=== PATIENT | male | born 1970 | race African-American/Black ===

== ENCOUNTER 2019-07-31 20:09 | Inpatient (IN) ==
[2019-07-31] MEDS ORDERED: NS 1,000 ML ONE (20:24)
[2019-07-31] MEDS ORDERED: NS 1,000 ML IV ONE ×3 (20:27→23:11)
[2019-07-31 21:03] LABS: BASO# 0.02 X1000 (0.0-0.2); BASO% 0.4 % (0.0-0.8); EOS# 0.06 X1000 (0.0-0.7); EOS% 1.2 % (0.0-10.0); HEMATOCRIT 42.9 % (42.0-52.0); HEMOGLOBIN 13.4 g/dL (14.0-18.0); IMM GRAN# 0.01 X1000 (0.0-0.04); IMM GRAN% 0.2 % (0.0-0.5); LYMPH# 2.43 X1000 (1.2-3.4); LYMPH% 46.8 % (20.5-51.1); MCHC 31.2 g/dL (33-37); MONO# 0.51 X1000 (0.11-0.59); MONO% 9.8 % (1.7-9.3); MPV 9.3 FL (7.4-10.4); NEUT# 2.16 X1000 (1.4-6.5); NEUT% 41.6 % (42.2-75.2); PLT 416 X1000 (130-400); RBC 4.47 XMIL (4.7-6.1); RDW 13.6 % (11.5-14.5); WBC 5.19 X1000 (4.8-10.8)
[2019-07-31 21:13] LABS: ALBUMIN 4.5 g/dL (3.5-5.0); CALCIUM 9.3 mg/dL (8.8-10.2); CREATININE 2.2 mg/dL (0.7-1.2); POTASSIUM 4.2 mmol/L (3.5-5.1); TOTAL BILIRUBIN 0.9 mg/dL (0.20-1.00); TOTAL PROTEIN 7.5 g/dL (6.3-8.3)
--- NOTE | 2019-07-31 22:12 | Diag Imaging Result Doc PS360 ---
EXAM: CHEST-1 VIEW INDICATION: dizziness, hypotension TECHNIQUE: One view COMPARISON: 11/17/2013 FINDINGS: The lungs are grossly clear. There is no discrete pleural fluid collection or pneumothorax. The cardiomediastinal silhouette and central vasculature are grossly unremarkable. IMPRESSION: No evidence of acute pathology by plain radiograph. Electronically signed by Jigar Tran 07/31/2019 10:10 PM
[2019-07-31 22:24] LABS: URINE SOURCE CLEAN CATCH
[2019-07-31 22:33] LABS: BILIRUBIN URINE NEGATIVE (NEGATIVE); BLOOD URINE NEGATIVE (NEGATIVE); COLOR YELLOW; GLUCOSE URINE NEGATIVE (NEGATIVE); KETONE URINE TRACE mg/dL (NEGATIVE); LEUKOCYTES URINE NEGATIVE (NEGATIVE); NITRITE URINE NEGATIVE (NEGATIVE); PROTEIN URINE 50 mg/dL (NEGATIVE); SP GRAVITY URINE 1.021; TURBIDITY URINE CLEAR (CLEAR); UROBILINOGEN URINE 2 mg/dL (NORMAL)
[2019-07-31 22:34] LABS: UR EPITHELIAL CELLS <10 /HPF (<10); URINE BACTERIA NEGATIVE /HPF; URINE RBC <10 /HPF (<10); URINE WBC <10 /HPF (<10)
[2019-07-31 23:07] LABS: UR AMPHETAMINES QUAL NONE DETECTED (NONE DETECT); UR BARBITUATES QUAL NONE DETECTED (NONE DETECT); UR BENZODIAZEPIN QUAL NONE DETECTED (NONE DETECT); UR CANNABINOIDS QUAL PRESUMPTIVE POSITIVE (NONE DETECT); UR COCAINE QUAL PRESUMPTIVE POSITIVE (NONE DETECT); UR METHADONE QUAL NONE DETECTED (NONE DETECT); UR METHAMPHETAMINE QUAL NONE DETECTED (NONE DETECT); UR OPIATES QUAL NONE DETECTED (NONE DETECT); UR OXYCODONE QUAL NONE DETECTED (NONE DETECT); UR PCP QUAL NONE DETECTED (NONE DETECT); UR PROPOXYPHENE QUAL NONE DETECTED (NONE DETECT); UR TCA QUAL NONE DETECTED (NONE DETECT)
[2019-07-31] MEDS ORDERED: NS 2,000 ML IV ONE (23:12)
--- NOTE | 2019-07-31 23:29 | PROVIDER DOCUMENTATION ---
This chart was entered by Karma Mcadams Scribe, acting as scribe for Eva Griffith MD. HPI-Syncope/Dizziness - General Stated Complaint: B/P PROBLEMS Time Seen by Provider: 07/31/19 20:23 Source: patient Allergies/Adverse Reactions: Patient Allergies Allergy/AdvReac Type Severity Reaction Status Date / Time No Known Allergies Allergy Verified 11/17/13 03:37 - History of Present Illness-Syncope/Dizzy Nature of Presenting Problem: 48 y/o male presents to the ED with complaint of dizziness and found to have BP 81/45 on arrival. He states he was at rest sitting when he began to feel dizzy. He gives a history of similar episode and was told at that time symptoms were due to dehydration. He states he takes no daily meds and has never really seen a physician. He denies any sick symptoms. Onset/Duration: reports: just prior to arrival Position/Activity at time of episode: reports: sitting Context: reports: other (dizziness) Loss of Consciousness: no loss of consciousness Location of injury. (If syncope resulted in an injury.): reports: none Current Symptoms: reports: dizzy Similar symptoms previously: reports: workup for same problem Recently Seen Here or By Another Healthcare Provider: No - Dizziness Severity in ED: reports: moderate Dizziness Related Current/Associated Symptoms: reports: dizzy Any recent trauma/injury?: reports: none Patient usually:: reports: walks without assistance Review of Systems - Adult - REVIEW OF SYSTEMS - ADULT Constitutional: denies: chills, fever, weight gain Eyes: reports: no symptoms reported Ears, Nose, Mouth & Throat: denies: tinnitus, epistaxis, sinus problem Cardiovascular: reports: no symptoms reported Respiratory: reports: no symptoms reported Gastrointestinal: denies: diarrhea, nausea, vomiting Genitourinary: reports: no symptoms reported Musculoskeletal: reports: no symptoms reported Integumentary: reports: no symptoms reported Neurological: reports: dizziness/vertigo. denies: headache/migraines, syncope Psychiatric: reports: no symptoms reported Endocrine: reports: no symptoms reported Hematologic/Lymphatic: reports: no symptoms reported Allergic/Immunologic: reports: no symptoms reported All Other Systems: Reviewed and Negative Past History - Adult - PAST MEDICAL HISTORY-ADULT Review of Records: reports: Old Records Reviewed, Nursing Assessment Review, Medications Reviewed Major Childhood Illnesses: reports: denies history Cardiovascular: reports: cardiac disease Respiratory: reports: denies history Gastrointestinal: reports: denies history Obstetrical/Gynecological: reports: denies history Genitourinary: reports: denies history Musculoskeletal: reports: denies history Neurological: reports: denies history Psychiatric: reports: denies history Endocrine/Immune: reports: denies history Other Conditions: reports: denies history - PRIOR SURGERIES/PROCEDURES Surgical/Procedure History: reports: reviewed, not pertinent - IMMUNIZATION STATUS Childhood Immunizations: See Nurse Assessment Flu Vaccine: See Nurse Assessment - FAMILY HISTORY Family History: reviewed, not pertinent - SOCIAL HISTORY Smoking: cigarettes, less than 1 pack/day Provider spent 3-5 mins advising pt. on dangers of tobacco.: Discussed manners to quit use, and f/u contacts for add'l counseling. Physical Exam-General - PHYSICAL EXAM-ADULT Initial Vital Signs Reviewed: Yes - CONSTITUTIONAL General Appearance: alert, other (appears weak) - HEAD, EARS, NOSE, MOUTH & THROAT HENMT: normocephalic/atraumatic - NECK Neck: full range of motion, supple - RESPIRATORY Respiratory: lungs clear, normal breath sounds, no respiratory distress, no accessory muscle use. negative: rales, rhonchi, wheezing - CARDIOVASCULAR Cardiovascular: normal peripheral pulses, no murmur, bradycardia - GASTROINTESTINAL (ABDOMEN) Abdominal Exam: normal bowel sounds, non tender, soft - MUSCULOSKELETAL Back Exam: normal inspection Extremity: normal inspection - SKIN Integumentary: normal color, warm/dry. negative: diaphoresis - NEUROLOGIC Neurologic: grossly normal - PSYCHIATRIC Psych/Mental Status: normal mood/affect, normal thought content, normal thought process, oriented x 3 Progress - PLAN OF CARE/RESULTS Progress/Plan/Lab Results: Vital Signs - 8 hr 07/31/19 20:42 07/31/19 20:54 07/31/19 21:19 Temperature 97.4 F L Pulse Rate 69 61 82 Respiratory Rate 18 18 18 Blood Pressure 81/45 98/66 106/71 O2 Sat by Pulse Oximetry 93 L 93 L 96 07/31/19 22:23 Temperature Pulse Rate 62 Respiratory Rate 20 Blood Pressure 117/80 O2 Sat by Pulse Oximetry 97 Laboratory Results - last 24 hr 07/31/19 07/31/19 07/31/19 20:28 20:40 20:40 WBC RBC Hgb Hct MCV MCH MCHC RDW Std Deviation Plt Count MPV Immature Gran % (Auto) Neut % (Auto) Lymph % (Auto) [place] % (Auto) Eos % (Auto) Baso % (Auto) Immature Gran # (Auto) Neut # (Auto) Lymph # (Auto) [place] # (Auto) Eos # (Auto) Baso # (Auto) Sodium 145 Potassium 4.2 Chloride 107 Carbon Dioxide 26 Anion Gap 12 BUN 16 Creatinine 2.2 H Estimated GFR/1.73 m2 32 BUN/Creatinine Ratio 7 Glucose 77 POC Glucose 73 Calculated Osmolality 289 Calcium 9.3 Total Bilirubin 0.90 AST 13 ALT 15 Alkaline Phosphatase 53 Creatine Kinase Troponin T High Sens 14 Total Protein 7.5 Albumin 4.5 Globulin 3.0 Albumin/Globulin Ratio 2.0 Urine Source Urine Color Urine Turbidity Urine pH Ur Specific [place] Urine Protein Ur Glucose (Stick) Ur Ketones (Stick) Urine Blood Urine Nitrite Urine Bilirubin Urobilinogen Dipstick Urine Leukocytes Urine WBC (Auto) Urine RBC (Auto) U Epithel Cells (Auto) Urine Bacteria (Auto) Urine Opiates Screen Ur Oxycodone Screen Urine Methadone Screen U Propoxyphene Qual Ur Barbituates Screen Ur Tricyclics Screen Ur Phencyclidine Scrn Ur Amphetamines Screen U Methamphetamines Scrn U Benzodiazepines Scrn Urine Cocaine Screen U Cannabinoids Screen 07/31/19 07/31/19 07/31/19 20:40 20:40 22:15 WBC 5.19 RBC 4.47 L Hgb 13.4 L Hct 42.9 MCV 96.0 MCH 30.0 MCHC 31.2 L RDW Std Deviation 13.6 Plt Count 416 H MPV 9.3 Immature Gran % (Auto) 0.2 Neut % (Auto) 41.6 L Lymph % (Auto) 46.8 [place] % (Auto) 9.8 H Eos % (Auto) 1.2 Baso % (Auto) 0.4 Immature Gran # (Auto) 0.01 Neut # (Auto) 2.16 Lymph # (Auto) 2.43 [place] # (Auto) 0.51 Eos # (Auto) 0.06 Baso # (Auto) 0.02 Sodium Potassium Chloride Carbon Dioxide Anion Gap BUN Creatinine Estimated GFR/1.73 m2 BUN/Creatinine Ratio Glucose POC Glucose Calculated Osmolality Calcium Total Bilirubin AST ALT Alkaline Phosphatase Creatine Kinase 331 H Troponin T High Sens Total Protein Albumin Globulin Albumin/Globulin Ratio Urine Source CLEAN CATCH Urine Color YELLOW Urine Turbidity CLEAR Urine pH 6.0 Ur Specific [place] 1.021 Urine Protein 50 A Ur Glucose (Stick) NEGATIVE Ur Ketones (Stick) TRACE A Urine Blood NEGATIVE Urine Nitrite NEGATIVE Urine Bilirubin NEGATIVE Urobilinogen Dipstick 2 A Urine Leukocytes NEGATIVE Urine WBC (Auto) <10 Urine RBC (Auto) <10 U Epithel Cells (Auto) <10 Urine Bacteria (Auto) NEGATIVE Urine Opiates Screen Ur Oxycodone Screen Urine Methadone Screen U Propoxyphene Qual Ur Barbituates Screen Ur Tricyclics Screen Ur Phencyclidine Scrn Ur Amphetamines Screen U Methamphetamines Scrn U Benzodiazepines Scrn Urine Cocaine Screen U Cannabinoids Screen 07/31/19 22:15 WBC RBC Hgb Hct MCV MCH MCHC RDW Std Deviation Plt Count MPV Immature Gran % (Auto) Neut % (Auto) Lymph % (Auto) [place] % (Auto) Eos % (Auto) Baso % (Auto) Immature Gran # (Auto) Neut # (Auto) Lymph # (Auto) [place] # (Auto) Eos # (Auto) Baso # (Auto) Sodium Potassium Chloride Carbon Dioxide Anion Gap BUN Creatinine Estimated GFR/1.73 m2 BUN/Creatinine Ratio Glucose POC Glucose Calculated Osmolality Calcium Total Bilirubin AST ALT Alkaline Phosphatase Creatine Kinase Troponin T High Sens Total Protein Albumin Globulin Albumin/Globulin Ratio Urine Source Urine Color Urine Turbidity Urine pH Ur Specific [place] Urine Protein Ur Glucose (Stick) Ur Ketones (Stick) Urine Blood Urine Nitrite Urine Bilirubin Urobilinogen Dipstick Urine Leukocytes Urine WBC (Auto) Urine RBC (Auto) U Epithel Cells (Auto) Urine Bacteria (Auto) Urine Opiates Screen NONE DETECTED Ur Oxycodone Screen NONE DETECTED Urine Methadone Screen NONE DETECTED U Propoxyphene Qual NONE DETECTED Ur Barbituates Screen NONE DETECTED Ur Tricyclics Screen NONE DETECTED Ur Phencyclidine Scrn NONE DETECTED Ur Amphetamines Screen NONE DETECTED U Methamphetamines Scrn NONE DETECTED U Benzodiazepines Scrn NONE DETECTED Urine Cocaine Screen PRESUMPTIVE POSITIVE A U Cannabinoids Screen PRESUMPTIVE POSITIVE A Orders Category Date Time Status FSBS/Accucheck Result NOW Care 07/31/19 20:26 Active NEWS Score >or=5:Order NEWS Bundle S.O. NOW Care 07/31/19 20:46 Active Resuscitation Status Routine Care 07/31/19 23:22 Ordered CHEST-1 VIEW [RAD] Stat Exams 07/31/19 20:[address] HEAD W/O CONTRAST [CT] Stat Exams 07/31/19 23:21 Taken BASIC METABOLIC PANEL [CHEM] Stat Lab 08/01/19 06:00 Ordered CBC WITH ELECTRONIC DIFF [HEME] Stat Lab 07/31/19 20:40 Completed CBC WITH ELECTRONIC DIFF [HEME] Stat Lab 08/01/19 06:00 Ordered CK TOTAL [CHEM] Stat Lab 07/31/19 20:40 Completed CK TOTAL [CHEM] Stat Lab 08/01/19 06:00 Ordered COMPREHENSIVE METABOLIC PANEL [CHEM] Stat Lab 07/31/19 20:40 Completed TROPONIN T HIGH SENSITIVITY Stat Lab 07/31/19 20:40 Completed URINALYSIS W/POSS RFLX CULT [URINALYSIS] Stat Lab 07/31/19 22:15 Com[address]INE DRUG SCREEN [address] Stat Lab 07/31/19 22:15 Completed 0.9% Sodium Chloride Inj [Ns] 1,000 ml Med 07/31/19 20:24 Discontinued .ROUTE As directed 0.9% Sodium Chloride Inj [Ns] 1,000 ml Med 07/31/19 20:27 Discontinued IV 999 mls/hr 0.9% Sodium Chloride Inj [Ns] 1,000 ml Med 07/31/19 22:45 Discontinued IV 999 mls/hr 0.9% Sodium Chloride Inj [Ns] 1,000 ml Med 07/31/19 23:11 Discontinued IV 999 mls/hr 0.9% Sodium Chloride Inj [Ns] 2,000 ml Med 07/31/19 23:12 Active IV 150 mls/hr Carotid Ultrasound Stat Ther 08/01/19 07:00 Ordered EKG [EKG] Stat Ther 07/31/19 20:26 Draft Echo Spec/Color Doppler Stat Ther 08/01/19 07:00 Ordered Transfer/Admit Order [TRANSFER] Routine Transfer 07/31/19 23:22 Ordered patient with initial hypotension to 80/40s. Improved with IVF but only while lying down. UDS + for multiple substances including cocaine, however, HR and BP not consistent with cocaine use. Spoke to Dr Morin, internet marketing consultant for hospitalist who accepted patient for admission. Wanted morning labs, ECHO and dopplers orders for the AM and continue IVF. Orders placed per his recommendations. Patient stable for the floor. Result Diagrams: 07/31/19 20:40 07/31/19 20:40 - EKG 1 Time of EKG reading by physician:: 22:30 EKG Read and Signed by:: Eva Griffith EKG Interpretation (*Must complete 3 of following elements*): Normal Rate: 62 Rhythm: NSR [place]: normal QRS: LVH MA Interval: normal ST Wave: normal Prior EKG Comparison: no prior EKG - XRAY 1 XRAY Study: Chest Impression: Normal (EXAM: CHEST-1 VIEW INDICATION: dizziness, hypotension TECHNIQUE: One view COMPARISON: 11/17/2013 FINDINGS: The lungs are grossly clear. There is no discrete pleural fluid collection or pneumothorax. The cardiomediastinal silhouette and central vasculature are grossly unremarkable. IMPRESSION: No evidence of acute pathology by plain radiograph. Electronically signed by Jigar Tran 07/31/2019 10:10 PM) - CT/MRI 1 CT Study: Head Impression: Abnormal (No acute intracranial process. Indeterminate sellar/parasellar mass which futher characterization with pre and postcontrast MRI is suggested.), See EMR Report - CONSULTS/PCP/HOSPITALIST Notification #1 *Consult/PCP/Hospitalist*: Dr. Mikel Nash Time Discussed: 23:17 Reason/Comments: dizziness/syncope Consult Disposition: Admit Departure - Departure Date of Disposition Decision: 07/31/19 Time of Disposition Decision: 23:14 DIAGNOSIS: Near syncope, Hypotension, Polysubstance abuse, GIACOMO (acute kidney injury) Disposition: ADMITTED INPATIENT 09 Certified Medical Emergency: Emergent Condition: Stable - Critical Care Note This patient required my direct & personal management of CC.: Yes Total Time (mins): 35 Critical Care Statement: This patient required my direct personal management to treat or rule out processes, the absence of which, could potentiallly result in sudden, clinically significant life or limb threatening deterioration. Attestation - Physician/ [place] Attestation Patient care was provided by Advanced Practice Provider:: No The physician spent face to face time with patient:: Yes Advanced Practice Provider documentation review:: Supervising physician onsite and consulted in the evaluation and care of this patient. The physician did have a face to face encounter with the patient. This chart was documented by the indicated scribe, (Karma Mcadams, Marquis) and accurately reflects the services I performed and decisions made by me, Eva Griffith MD, as attested by the provider's signature.
--- NOTE | 2019-08-01 00:02 | EKG Report ---
Test Performed on : 07/31/2019 10:28:08 PM Test Reason : hypotension, dizziness Blood Pressure : / mmHG Vent. Rate : 062 BPM Atrial Rate : 062 BPM P-R Int : 144 ms QRS Dur : 102 ms QT Int : 452 ms P-R-T Axes : 056 041 060 degrees QTc Int : 458 ms Normal sinus rhythm. with sinus arrhythmia. Normal ECG No previous ECGs available Unconfirmed Result
[2019-08-01 02:21] LABS: INR 0.97; PROTIME 13.4 Seconds (11.0-16.0); PTT 33.6 Seconds (22.3-41.8)
[2019-08-01 05:23] LABS: BASO# 0.02 X1000 (0.0-0.2); BASO% 0.3 % (0.0-0.8); EOS# 0.08 X1000 (0.0-0.7); EOS% 1.2 % (0.0-10.0); HEMATOCRIT 39.7 % (42.0-52.0); HEMOGLOBIN 12.3 g/dL (14.0-18.0); IMM GRAN# 0.01 X1000 (0.0-0.04); IMM GRAN% 0.1 % (0.0-0.5); LYMPH# 2.53 X1000 (1.2-3.4); LYMPH% 36.9 % (20.5-51.1); MCH 30.1 PG (27-31); MCV 97.1 FL (81-99); MONO% 7.3 % (1.7-9.3); MPV 9.3 FL (7.4-10.4); NEUT# 3.72 X1000 (1.4-6.5); NEUT% 54.2 % (42.2-75.2); PLT 354 X1000 (130-400); RBC 4.09 XMIL (4.7-6.1); RDW 13.8 % (11.5-14.5); WBC 6.86 X1000 (4.8-10.8)
[2019-08-01 05:35] LABS: CALCIUM 7.7 mg/dL (8.8-10.2); CREATININE 1.3 mg/dL (0.7-1.2); POTASSIUM 3.8 mmol/L (3.5-5.1)
--- NOTE | 2019-08-01 09:05 | Diag Imaging Result Doc PS360 ---
EXAM: CT HEAD W/O CONTRAST INDICATION: near syncope, hypotension TECHNIQUE: This exam was performed using automated exposure control, adjustment of mA or kV according to patient size, and/or use of iterative reconstruction technique. COMPARISON: None. FINDINGS: There is no definite acute infarct given the limited sensitivity of CT versus MRI. 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 It measures approximately 2.3 x 1.6 cm axially. There is suggestion of mild right parasellar bony remodeling. Although nonspecific, the mass is probably extra-axial. A parasellar meningioma, a pituitary macroadenoma, or even a parasellar aneurysm are differential considerations. Correlation with an MRI with and without contrast is recommended if not contraindicated. No other discrete mass is identified. There is no evidence of intracranial hemorrhage. There is no hydrocephalus. Surrounding soft tissues are unremarkable. The calvaria is intact. IMPRESSION: 1.Right parasellar mass as described. Correlation with MRI with and without contrast is recommended for better characterization. Please see above discussion. 2.No evidence of acute intracranial pathology, otherwise. Electronically signed by Jigar Tran 08/01/2019 9:02 AM
--- NOTE | 2019-08-01 14:31 | Vascular Study Report ---
EXAM: Carotid Ultrasound INDICATION: near syncope, hypotension TECHNIQUE: COMPARISON: None. FINDINGS: Right: There is no significant atherosclerotic disease involving the right carotid system on grayscale images. The peak systolic velocity measures 119, 102, 51, 34, 53, 63, and 98 cm/s at the right subclavian artery, CCA, bifurcation, proximal ICA, mid ICA, distal ICA, and ECA, respectively. There is antegrade flow in the vertebral artery. The carotid ratio is 0.6. Left: There is no significant atherosclerotic disease involving the left carotid system on grayscale images. The peak systolic velocity measures 140, 102, 53, 39, 51, 65, and 100 cm/s at the left subclavian artery, CCA, bifurcation, proximal ICA, mid ICA, distal ICA, and ECA, respectively. There is antegrade flow in the vertebral artery. The carotid ratio is 0.6. IMPRESSION: No evidence of hemodynamically significant carotid stenosis by Doppler. Electronically signed by Jigar Tran 08/01/2019 2:29 PM
[2019-08-02] MEDS ORDERED: VANCOMYCIN IV PER PHARMACY MISC SCH (06:00)
[2019-08-02] MEDS: VANCOMYCIN 1 GM/NS 1 GM/250 ML IVPB IV SCH ×3 (07:02→20:19)
[2019-08-02 09:59] LABS: BASO# 0.02 X1000 (0.0-0.2); BASO% 0.4 % (0.0-0.8); EOS# 0.08 X1000 (0.0-0.7); EOS% 1.7 % (0.0-10.0); HEMOGLOBIN 13.1 g/dL (14.0-18.0); IMM GRAN# 0.01 X1000 (0.0-0.04); IMM GRAN% 0.2 % (0.0-0.5); LYMPH# 1.85 X1000 (1.2-3.4); MCH 29.8 PG (27-31); MCHC 31.2 g/dL (33-37); MCV 95.5 FL (81-99); MONO# 0.33 X1000 (0.11-0.59); MONO% 7.1 % (1.7-9.3); MPV 9.3 FL (7.4-10.4); NEUT# 2.34 X1000 (1.4-6.5); NEUT% 50.6 % (42.2-75.2); PLT 358 X1000 (130-400); RDW 13.4 % (11.5-14.5); WBC 4.63 X1000 (4.8-10.8)
[2019-08-02 10:15] LABS: AGAP 13; BUN 10 mg/dL (8-22); CALCIUM 8.2 mg/dL (8.8-10.2); CHLORIDE 106 mmol/L (98-107); COSMO 284; CREATININE 1.2 mg/dL (0.7-1.2); ESTIMATED GFR > 60; GLUCOSE 130 mg/dL (70-104); POTASSIUM 3.5 mmol/L (3.5-5.1); SODIUM 142 mmol/L (136-145); TCO2 23 mmol/L (25-35)
--- NOTE | 2019-08-02 10:32 | PROGRESS NOTE ---
DATE: 08/02/2019 SUBJECTIVE: The patient reports feeling fine. No more episodes of dizziness. Blood pressure is much better. He is going to the bathroom, walking without any sensation of lightheadedness. OBJECTIVE: Vital Signs: Temperature 97.6 degrees, heart rate 64, respiratory rate 18, blood pressure 164/108, O2 saturation 100% on room air. General Examination: This is a 48-year-old, -[place] male, lying in bed, in no acute distress. Cardiovascular Examination: S1 and S2 heard. No murmurs, gallops, or rubs. Regular rate and rhythm. Respiratory Examination: Clear bilaterally to auscultation. No work of breathing or using accessory muscles. Abdomen: Soft. Nontender to palpation. Bowel sounds present. No organomegaly. Extremities: No clubbing, cyanosis, or edema. Peripheral pulses present in both legs. Neurological Examination: The patient alert and oriented x3. Moves 4 extremities. Laboratory Data: Pending at the time of my dictation. ASSESSMENT: 1. Hypotension on presentation. 2. Polysubstance abuse with cocaine and marijuana. 3. Acute kidney injury. PLAN: The patient was admitted to the hospital because of the conditions mentioned above. It was very surprising that this patient, having consumed cocaine, the blood pressure is low and he was a little bit relatively bradycardic. Now that condition has resolved with IV fluids. Renal function continues to improve. We do not have the results of the of the BMP from today. From admission to yesterday, there has been good improvement of the renal function. So far, the workup for syncope including carotid ultrasound is okay. The head CT on admission showed a right parasellar mass. We will definitely check an MRI of the brain with and without contrast to have a better visualization with the brain anatomy. Also, we were called that the blood cultures are negative. Considering history polysubstance abuse, I have asked this patient if he was using IV drugs but he denies. In any case, we will wait for the final results of blood cultures for tomorrow and we will go from there. cc: Ty Mccoy MD
--- NOTE | 2019-08-02 11:43 | ECHO REPORT ---
ORDER DATE: 08/01/2019 INTERPRETING PHYSICIAN: Dr. Blake Zimmerman. ECHOCARDIOGRAPHIC MEASUREMENTS: 1. Interventricular septum 1.4 cm. 2. Left ventricular posterior wall 1.3 cm. 3. Left ventricular diastolic diameter 5.3 cm. 4. Left atrium 4.2 cm. 5. Aorta 3.4 cm. SUMMARY OF THE 2-DIMENSIONAL IMAGIN. Mitral valve was normal. 2. Aortic valve leaflets were trileaflet. 3. Tricuspid valve was normal. 4. Pulmonic valve was normal. 5. There is mild pulmonary regurgitation. 6. There is mild tricuspid regurgitation. Peak velocity across the tricuspid valve was 2.5 m/sec. 7. Pulmonary artery systolic pressure of 35 mmHg. 8. Normal left ventricular cavity size. Concentric left ventricular hypertrophy. Estimated ejection fraction of 60%. 9. There is mild mitral regurgitation. 10. Peak velocity across the aortic valve is less than 2 m/sec by Doppler studies. There is no aortic stenosis. There is trivial aortic regurgitation. 11. There is no pericardial effusion or obvious intracardiac mass or thrombus seen. cc: Blake Zimmerman MD
[2019-08-03 06:06] LABS: CALCIUM 8.5 mg/dL (8.8-10.2); CREATININE 1.3 mg/dL (0.7-1.2); POTASSIUM 3.5 mmol/L (3.5-5.1)
[2019-08-03 06:20] LABS: BASO# 0.02 X1000 (0.0-0.2); BASO% 0.4 % (0.0-0.8); EOS# 0.14 X1000 (0.0-0.7); EOS% 2.6 % (0.0-10.0); HEMATOCRIT 43.5 % (42.0-52.0); HEMOGLOBIN 13.8 g/dL (14.0-18.0); IMM GRAN# 0.02 X1000 (0.0-0.04); IMM GRAN% 0.4 % (0.0-0.5); LYMPH# 2.29 X1000 (1.2-3.4); LYMPH% 42.6 % (20.5-51.1); MCHC 31.7 g/dL (33-37); MCV 94.6 FL (81-99); MONO# 0.46 X1000 (0.11-0.59); MONO% 8.6 % (1.7-9.3); MPV 9.4 FL (7.4-10.4); NEUT# 2.44 X1000 (1.4-6.5); NEUT% 45.4 % (42.2-75.2); PLT 368 X1000 (130-400); WBC 5.37 X1000 (4.8-10.8)
[2019-08-03 07:56] VITALS: BP 153/92
[2019-08-03] MEDS: VANCOMYCIN 1 GM/NS 1 GM/250 ML IVPB IV SCH (08:16)
--- NOTE | 2019-08-03 14:11 | DISCHARGE SUMMARY ---
ADMISSION DATE: 07/31/2019 DISCHARGE DATE: 08/03/2019 DISCHARGE DIAGNOSES: 1. Syncope, resolved. 2. Hypotension, resolved. 3. Polysubstance abuse. 4. Acute kidney injury, resolved. 5. Prostatism. Aware. CONSULTATIONS: None. PROCEDURES: 1. Chest x-ray done on admission showed no evidence of acute pathology by plain radiograph. 2. Head CT done on admission showed right parasellar mass as described. No evidence of acute intracranial pathology. 3. Echocardiogram Doppler showed ejection fraction of 60% with no pericardial effusion. No obvious intracardiac mass or thrombus seen. No aortic stenosis. HOSPITAL COURSE: In brief, this is a 48-year-old male, who presented to the emergency department complaining of dizziness and he was found to have a blood pressure 81/45. He was resting when he started feeling dizzy. So he told us he had become dehydrated. Upon evaluation, was found out to have cocaine and cannabinoids positive in the UDS. The patient was admitted for syncope workup. The results of the exam mentioned above: The patient was feeling better. Blood pressure was okay. We stopped IV fluids and blood pressure maintains above 130s- 140s. The patient also reports some signs of prostatism. He reports that he was having nocturia also some more urinary frequency. We checked results of CT scan of the head with that suprasellar mass. We ordered an MRI of the brain before discharge, but patient refused to have that exam because he was feeling very anxious and, even though we offered medications for anxiety, he finally refused to have that procedure. The patient is going to be discharged in stable condition. He has been advised and informed about that finding in the CT scan of the head. DISCHARGE PHYSICAL EXAMINATION: Vital Signs: Temperature 97.4 degrees, heart rate 97, respiratory 16, blood pressure 153/92, O2 saturation 99% on room air. General examination: This is a 48-year-old, male, lying in bed in no acute distress. Cardiovascular exam: S1, S2 heard. No murmurs, gallops, or rubs. Regular rate and rhythm. Respiratory exam: Clear bilaterally to auscultation. No work of breathing or using accessory muscles. Abdomen: Soft, nontender to palpation. Bowel sounds present. No organomegaly. Extremities: No clubbing, cyanosis, or edema. Peripheral pulses present in both legs. Neurological exam: The patient is alert, oriented x3. Moves 4 extremities. DISCHARGE DISPOSITION: Home to self-care. LIST OF MEDICATIONS: At this point, we are not providing any medications to him, except Flomax 0.4 mg one tablet p.o. at bedtime. cc: Ty Mccoy MD
--- NOTE | 2019-08-15 13:09 | HISTORY AND PHYSICAL ---
CHIEF COMPLAINT: Hypertension. HISTORY OF PRESENT ILLNESS: The patient is a 48-year-old male that presented to [facility] secondary to dizziness. He was noted to have hypotension with blood pressure 81/45, stating that he felt dizzy and lightheaded, felt like he was going to pass out. The patient had several episodes until he was hydrated. Denies taking any current medications and denies any that he takes on a regular basis. Denies any chest pains. Denies fevers, chills. ALLERGIES: No known drug allergies. MEDICATIONS: No current prescription medications. REVIEW OF SYSTEMS: As noted above. Positive lightheaded, dizzy. Denies any shortness of breath. Denies palpitations. Klaus any syncope, although he feels like he is going to pass out. Denies dysuria, frequency, constipation, melena or hematochezia at the present time. PAST MEDICAL HISTORY: Does have a history of coronary disease, but has not been following up with any physician over the last several years. Denies any other medical issues. FAMILY HISTORY: Noncontributory. SOCIAL HISTORY: Continues to smokes although less than a pack a day. Denies any substance abuse. PHYSICAL EXAMINATION: VITAL SIGNS: Reviewed. He is afebrile, pulse 97, respiratory 16, BP 81/45 and 106/71. GENERAL: Patient is awake, pleasant. He is in no respiratory distress. He is lying flatly in the bed. HEENT: Normocephalic. NECK: Supple. CARDIOVASCULAR: Regular rate. CHEST: Clear, nonlabored, no wheezing. ABDOMEN: Soft, nondistended, nontender. EXTREMITIES: Moves all extremities. NEUROLOGIC: No focal changes. ASSESSMENT: 1. Hypotension of uncertain origin. 2. Urine drug screen positive for cocaine, which the patient does admit that he used to help a toothache. 3. Known coronary artery disease. 4. Chronic tobacco abuse. PLAN: We will check an echo to rule out [place]. Place him on fluids. Discussed with the patient the perils of smoking, along with the perils of cocaine use. His creatinine is elevated to 2.2. Place him on IV fluids and will follow. cc: Berto Ontiveros MD
== END 2019-08-03 12:12 | disposition home or self-care (01) | DRG 315 ==
LOC: P.ED 20:09 → P.EDIPHOLD 23:54 → SUATTDRO 23:54
PROVIDERS: ATTEND Internal Medicine